=== PATIENT | male | born 1985 | race Caucasian/White ===

== ENCOUNTER 2020-04-27 20:30 | Emergency (ER) | payer BC ==
[~2020-04-27] VITALS: Ht 185.4 cm; Wt 83.0 kg
[2020-04-27 21:01] VITALS: BP 101/65
--- NOTE | 2020-04-27 21:04 | NUR ---
PT AMBULATED TO CHAIR A WITH STEADY GAIT
--- NOTE | 2020-04-27 22:36 | NUR ---
35 Y/O MALE C/O METH/WEED USE PRIOR TO ARRIVING AND WANTING TO DETOX; DENIES N/V/D; SKIN IS PINK/WARM/DRY; AAOX4 WITH EVEN AND STEADY GAIT; HR EVEN AND REGULAR; PT DENIES ANY FEVER, CP, SOB, OR COUGH AT THIS TIME; PATIENT STATES PAIN OF 0/10 AT THIS TIME; VSS; PATIENT POSITIONED FOR COMFORT; HOB ELEVATED; PT IN CHAIR A. ER MADE AWARE OF PT STATUS. PMH:HTN/SCHIZOPHRENIA NKA
[2020-04-27 22:38] VITALS: BP 101/65
--- NOTE | 2020-04-27 22:38 | NUR ---
Patient discharged with v/s stable. Written and verbal after care instructions given and explained. Patient verbalized understanding. Ambulatory with steady gait. All questions addressed prior to discharge. Advised to follow up with PMD.
== END 2020-04-27 22:38 | disposition home or self-care (01) ==
LOC: MED 20:30
DX: T40.5X1A Poisoning by cocaine, accidental (unintentional), initial encounter (principal); R41.0 Disorientation, unspecified; G92 Toxic encephalopathy; Y92.89 Other specified places as the place of occurrence of the external cause
CPT/HCPCS: 99283